=== PATIENT | male | born 1995 | race Caucasian/White ===

== ENCOUNTER 2017-10-03 20:28 | Emergency (ER) | payer SELFPAY ==
[2017-10-03 20:30] VITALS: BP 158/67; PULSE 78; RESP 16; TEMP 36.1; O2SAT 96; BMI 25.0
--- NOTE | 2017-10-03 22:30 | EKG12_ITS ---
Test Reason : CP Blood Pressure : / mmHG Vent. Rate : 075 BPM Atrial Rate : 075 BPM P-R Int : 138 ms QRS Dur : 098 ms QT Int : 372 ms P-R-T Axes : 063 095 069 degrees QTc Int : 415 ms Normal sinus rhythm Normal ECG Confirmed by JHONATHAN OSBORNE ([id number]), content editor YAO BORJAS ([id number] on 10/05/2017 2:57:37 PM Referred By: ROXY Confirmed By:JHONATHAN OSBORNE
--- NOTE | 2017-10-03 22:31 | ED.DCSUM_ITS ---
- ER Visit Summary Date of Service: 10/03/17 Chief Complaint: Chest pain History of Present Illness: The patient is a 21 M left-sided sudden chest pain at 6:30 PM while at work. Works on a machine. No heavy exertion. Mild dyspnea. No nausea or diaphoresis. No radicular symptoms. States currently pain in his left ribs. Mild. No recent travel, surgeries, or immobilizations. No history of PE or DVT. Denies any injuries. Tobacco history. Father with VT at the age of 45. No previous similar symptoms. No past medical history. No family sudden heart at a young age. Physical Examination: General: Alert and oriented ?3, no acute distress HEENT: Normocephalic, atraumatic. Moist mucosa membranes Neck: supple, nontender. Cardiovascular: Regular rate and rhythm, no murmurs no chest wall tenderness. Respiratory: Normal breath sounds, symmetric, no distress Abdomen: Soft, nontender, nondistended Extremities: Nontender, no edema, pulses intact ?4 Neuro: no focal neurological deficits. . Test Results: EKG: Normal sinus rhythm, rate of 75, no ST or T-wave changes. Chest x-ray negative. Emergency Department Course and Treatment: Patient presents atypical symptoms. EKG normal. Chest x-ray negative. Risk factors family history and tobacco history. I discussed with patient once further evaluation with lab work for which he declines. He was given Motrin with improvement of symptoms. PERC criteria negative. Patient will continue Motrin as needed. Monitor symptoms and follow-up with PCP. Any worsening symptoms return for reevaluation. All questions were answered. Treatment Plan: [] Disposition: Discharge Impression: Atypical chest pain This note was generated with [employer] dictation software. It may contain incorrect words, spelling, and punctuation that were not noted in review of the chart prior to signing ED Disposition - Plan for ED Patient: Disposition: Home or Assisted Living Chief Complaint: Chest Pain Diagnosis: Atypical chest pain Instructions: ED Chest Pain Atypical Unkn Cause Referrals: Care Physician,No Primary [Primary Care Provider] - Seema Weston MD [COURTESY STAFF PHYSICIAN] - 3-5 Days
--- NOTE | 2017-10-03 22:43 | NURSING ---
NO OLD EKG'S IN MUSE
[2017-10-03] MEDS: Ibuprofen 600 MG Tablet PO (23:05)
--- NOTE | 2017-10-03 23:05 | RAD_ITS ---
STUDY: X-RAY CHEST REASON FOR EXAM: Male, 21 years old. Chest pain TECHNIQUE: Frontal and lateral views of the chest. COMPARISON: None. FINDINGS: The lungs are clear and expanded. There is no demonstrated pleural abnormality. Normal size heart. Normal mediastinum and becca. Normal visualized pulmonary arteries. Normal visualized aortic arch and descending thoracic aorta. Normal visualized thoracic spine. Normal visualized ribs, clavicles, and shoulders. There is no demonstrated abnormality of the visualized soft tissue structures of the upper abdomen. RAD/Chest PA and Lateral IMPRESSION: Normal x-ray examination of the chest. Electronically Signed: Rigo Pineda MD at 23:21 EST , Service support ,
[2017-10-03 23:06] VITALS: BP 122/69; PULSE 85; RESP 16; O2SAT 98
[2017-10-03 23:40] VITALS: BP 121/66; PULSE 79; RESP 16; O2SAT 100
== END 2017-10-03 23:53 | disposition home or self-care (01) ==
PROVIDERS: Emergency Provider Emergency Medicine
DX: R07.89 Other chest pain (principal); Z82.49 Family history of ischemic heart disease and other diseases of the circulatory system; Z72.0 Tobacco use
CPT/HCPCS: 71046; 93005; 99283

== ENCOUNTER 2017-10-11 20:02 | Emergency (ER) | payer SELFPAY ==
[2017-10-11 20:02] VITALS: BP 132/74; PULSE 75; RESP 15; TEMP 37; BMI 23.6
--- NOTE | 2017-10-11 20:51 | ED.DCSUM_ITS ---
- ER Visit Summary Date of Service: 10/11/17 Chief Complaint: Sore throat History of Present Illness: The patient is a 21 M no primary care physician. He has a sore throat that began this morning after an episode of vomiting. He describes an aching pain Zeta 10 with swallowing 5 out of 10 at rest. Is not taking anything for pain. He also complains of subjective fever and chills. States that he has a cough productive green sputum that began yesterday. He denies any abdominal pain. Is vomited 4 times a day without blood in his emesis. No diarrhea. Physical Examination: Vitals: Stable. Afebrile. General: Well-nourished and well-developed. Head: Normocephalic atraumatic. HEENT: No tonsillar exudate or enlargement. He does have mild uvulitis. Neck: Supple, no lymphadenopathy. No JVD. Nontender. Cardiovascular: Regular rate and rhythm. No murmurs. Respiratory: No respiratory distress. Clear to auscultation bilaterally. Abdominal: Soft, nontender, nondistended, normal bowel sounds. No guarding, rebound, or peritoneal signs. Back: Nontender. Extremities: Nontender, no edema. Skin: Normal color, no rash. Neurologic: Alert and oriented ?3. Cranial nerves II through XII are intact. Normal strength and sensation. Psych: Normal affect. Emergency Department Course and Treatment: I suspect patient has a chemical uvulitis from his vomiting. He is treated with Zofran for that. I offered Tylenol, ibuprofen, or naproxen for pain. He reports that none of these work for him. I do not think putting him on opiate medication is indicated or in his best interest. Treatment Plan: The patient will be discharged with Zofran and instructed to follow-up the [facility] in 1 week if not improving. Disposition: To home in improved and stable condition. Impression: 1. Vomiting. 2. Uvulitis. This note was generated with [employer] dictation software. It may contain incorrect words, spelling, and punctuation that were not noted in review of the chart prior to signing ED Disposition - Plan for ED Patient: Disposition: Home or Assisted Living Chief Complaint: Sore Throat Instructions: ED Uvulitis Prescriptions: Ondansetron [Zofran Odt] 4 mg PO Q8H PRN PRN #10 tablet PRN Reason: Nausea Referrals: Ana Tyler [NON-STAFF] - 1 Week if not improving
[2017-10-11] MEDS: Ondansetron ODT 4 MG Tablet PO (20:56)
[2017-10-11 20:59] VITALS: BP 128/70; PULSE 71; RESP 18; O2SAT 98
== END 2017-10-11 21:00 | disposition home or self-care (01) ==
PROVIDERS: Emergency Provider Emergency Medicine
DX: K12.2 Cellulitis and abscess of mouth (principal); R11.10 Vomiting, unspecified; Z72.0 Tobacco use; Z82.5 Family history of asthma and other chronic lower respiratory diseases
CPT/HCPCS: 99283